=== PATIENT | female | born 1935 | race Caucasian/White ===

== ENCOUNTER → 2018-11-27 | Outpatient (CLI) | payer MEDICARE, OTHER ==
--- NOTE | 2018-11-27 15:55 | PCVCIMAG ---
EXAM: VENOUS DUPLEX LEFT LOWER EXTREMITY INDICATION: Leg pain and swelling. FINDINGS: Left leg: No thrombus in the common femoral, main femoral, or popliteal veins. These veins are compressible with phasic flow. Calf veins are unremarkable where seen. IMPRESSION: No evidence of deep venous thrombosis in the left lower extremity as detailed above. LOC:[id number]
--- NOTE | 2018-11-27 17:13 | PCVCIMAG ---
APPROVED REPORT Study performed: 11/27/2018 13:48:57 EXAM: Comprehensive 2D, Doppler, and color-flow Echocardiogram Patient Location: Echo lab Status: routine BSA: 1.69 HR: 73 bpmBP: 112/62 mmHg Rhythm: Atrial Fibrillation Other Information Study Quality: Technically Difficult Risk Factors: Cardiac Risk Factors: HTN, Hyperlipidemia, , DM Indications Atrial Fibrillation 2D Dimensions IVSd: 9.76 (7-11mm)LVOT Diam: 18.70 (18-24mm) LVDd: 39.30 mm PWd: 10.91 (7-11mm)Ascending Ao: 37.09 (22-36mm) LVDs: 34.78 (25-40mm) Left Atrium: 49.18 (27-40mm) Aortic Root: 32.09 mm LV Single Plane 4CH: 41.67 % Volumes Left Atrial Volume (Systole) Single Plane 4CH: 76.19 mLSingle Plane 2CH: 82.99 mL LA ESV Index: 53.00 mL/m2 Aortic Valve AoV Peak Caden.: 0.92 m/s AO Peak Gr.: 3.38 mmHgLVOT Max P.23 mmHg LVOT Max V: 0.63 m/s YUE Vmax: 1.87 cm2 Mitral Valve E/A Ratio: 1.0 MV E Max Caden.: 0.69 m/s MV A Caden.: 0.66 m/s Pulmonary Valve PV Peak Gr.: 0.59 mmHg Tricuspid Valve TR Peak Caden.: 1.96 m/s TR Peak Gr.: 17.03 mmHg Left Ventricle The left ventricle is normal size. There is normal LV segmental wall motion. There is normal left ventricular wall thickness. Left ventricular systolic function is moderate to severely decreased. LVEF is 35-40%.global This study is not technically sufficient to allow evaluation of the LV diastolic function due to atrial fibrillation. Right Ventricle The right ventricle is normal size. The right ventricular systolic function is normal. Atria Left atrium is severely dilated. Right atrium is severely dilated. Aortic Valve The aortic valve is normal in structure. Trace aortic regurgitation. There is no aortic valvular stenosis. Mitral Valve The mitral valve is normal in structure. Mild mitral regurgitation. No evidence of mitral valve stenosis. Tricuspid Valve The tricuspid valve is normal in structure. Severe tricuspid regurgitation. Pulmonary artery pressure is 27mmHg. Pulmonic Valve The pulmonary valve is normal in structure. There is no pulmonic valvular regurgitation. Great Vessels The aortic root is normal in size. IVC is normal in size and collapses >50% with inspiration. Pericardium There is no pericardial effusion. <Conclusion> The left ventricle is normal size. Left ventricular systolic function is moderate to severely decreased. LVEF is 35-40%.global This study is not technically sufficient to allow evaluation of the LV diastolic function due to atrial fibrillation. The right ventricle is normal size. Left atrium is severely dilated. Right atrium is severely dilated. Trace aortic regurgitation. Mild mitral regurgitation. Severe tricuspid regurgitation. Pulmonary artery pressure is 27mmHg. The aortic root is normal in size. There is no pericardial effusion.
== END | disposition home or self-care (01) ==
LOC: PCVCIMAG 13:08
PROVIDERS: ATTEND Internal Medicine Cardiovascular Disease
DX: I08.1 Rheumatic disorders of both mitral and tricuspid valves (principal); I48.0 Paroxysmal atrial fibrillation; I25.10 Atherosclerotic heart disease of native coronary artery without angina pectoris; E78.00 Pure hypercholesterolemia, unspecified; I10 Essential (primary) hypertension; E11.9 Type 2 diabetes mellitus without complications; R06.02 Shortness of breath; R60.0 Localized edema; M79.89 Other specified soft tissue disorders; Z79.899 Other long term (current) drug therapy
CPT/HCPCS: 93005; 93306; 93971; G0463

== ENCOUNTER → 2018-12-23 | Outpatient (CLI) | payer MEDICARE, OTHER | END | disposition home or self-care (01) | LOC: PCVCCLINIC 14:32 | PROVIDERS: ATTEND Internal Medicine Cardiovascular Disease | DX: I48.91 Unspecified atrial fibrillation (principal); I10 Essential (primary) hypertension; E78.00 Pure hypercholesterolemia, unspecified; E11.9 Type 2 diabetes mellitus without complications; Z79.84 Long term (current) use of oral hypoglycemic drugs; Z88.0 Allergy status to penicillin | CPT/HCPCS: 93005; G0463 ==

== ENCOUNTER → 2019-03-24 | Outpatient (CLI) | payer MEDICARE, OTHER | END | disposition home or self-care (01) | LOC: PCVCCLINIC 13:00 | PROVIDERS: ATTEND Internal Medicine Cardiovascular Disease | DX: I48.91 Unspecified atrial fibrillation (principal); I25.10 Atherosclerotic heart disease of native coronary artery without angina pectoris; E78.00 Pure hypercholesterolemia, unspecified; I10 Essential (primary) hypertension; E11.9 Type 2 diabetes mellitus without complications; I42.9 Cardiomyopathy, unspecified; R53.83 Other fatigue; Z72.89 Other problems related to lifestyle; Z88.0 Allergy status to penicillin; Z88.2 Allergy status to sulfonamides | CPT/HCPCS: 36415; 80061; 93005; G0463 ==

== ENCOUNTER → 2019-04-10 | Outpatient (CLI) | payer MEDICARE, OTHER ==
[~2019-04-10] MED LIST: REGADENOSON 0.4 MG/5 ML DISP.SYRIN. IV ONE
--- NOTE | 2019-04-10 13:55 | PCVCIMAG ---
APPROVED REPORT Study performed: 04/10/2019 08:07:24 EXAM: Limited 2D and color flow Echocardiogram Patient Location: Echo lab Status: routine BSA: 1.60 HR: 70 bpmBP: 124/76 mmHg Rhythm: Atrial Fibrillation Other Information Study Quality: Adequate Risk Factors: Cardiac Risk Factors: Hyperlipidemia, DM Indications Atrial Fibrillation Cardiomyopathy Fatigue 2D Dimensions IVSd: 7.95 (7-11mm) LVDd: 33.86 mm PWd: 8.63 (7-11mm)Ascending Ao: 36.86 (22-36mm) LVDs: 26.63 (25-40mm) Left Atrium: 47.82 (27-40mm) Aortic Root: 31.40 mm LV Single Plane 4CH: 55.83 % LV Single Plane 2CH: 49.27 % Biplane EF: 52.0 % Volumes Left Atrial Volume (Systole) Single Plane 4CH: 63.68 mLSingle Plane 2CH: 60.65 mL LA ESV Index: 40.00 mL/m2 Tricuspid Valve TR Peak Caden.: 2.37 m/sRAP Estimate: 7.00 mmHg TR Peak Gr.: 22.53 mmHg PA Pressure: 30.00 mmHg Left Ventricle The left ventricle is normal size. There is normal left ventricular wall thickness. The left ventricular systolic function is normal. The left ventricular ejection fraction is within the normal range. LVEF is 50-55%. Right Ventricle The right ventricle is normal size. The right ventricular systolic function is normal. Atria Left atrium is mildly dilated. Right atrium is dilated. Aortic Valve The aortic valve is normal in structure. Mitral Valve The mitral valve is normal in structure. Tricuspid Valve The tricuspid valve is normal in structure. Moderate tricuspid regurgitation. Pulmonary artery pressure is 30 mmHg. Pulmonic Valve The pulmonary valve is normal in structure. Great Vessels The aortic root is normal in size. The ascending aorta is normal in size. IVC is normal in size and collapses >50% with inspiration. Pericardium There is no pericardial effusion. <Conclusion> The left ventricle is normal size. LVEF is 50-55%. The right ventricle is normal size. Left atrium is mildly dilated. Right atrium is dilated. The aortic valve is normal in structure. The mitral valve is normal in structure. The aortic root is normal in size. There is no pericardial effusion.
--- NOTE | 2019-04-21 17:09 | PCVCIMAG ---
APPROVED REPORT Imaging Protocol: Rest Tc-99m/Stress Tc-99m 1 day Study performed: 04/10/2019 09:12:15 Indication: Atrial Fibrillation, CAD, Fatigue, Cardiomyopathy Patient Location: Out-Patient Stress Nurse: Rosita Hagen RN [place] Tech:Fabiola Masonhbun [facility] Ht: 5 ft 3 in Wt: 129 lbs BSA: 1.60 m2 HR: 91 bpm BP: 147/63 mmHg BMI: 22.8 Rhythm: Atrial Fibrillation Medical History Medical History: HTN, Hyperlipidemia, Diabetic � Noninsulin, Former Smoker Medications: Cardizem, Lisinopril-HCTZ, Xarelto Allergies: Sulfa, PCN Cardiac Risk Factors: Age Pretest Chest Pain Characteristics: No chest pain Exercise History: Sedentary Physical Disabilities: Lower Extremity Neuropathy Resting Data Rest SPECT myocardial perfusion imaging was performed in supine position 45 minutes following the intravenous injection of 10.3 mCi of Tc-99m Sestamibi. Time of rest injection: 0840 Date: 04/10/2019 Administration Route: IV Administration Site: Right AC Pharmacologic Stress Pharmacologic stress test was performed by injecting Regadenoson 0.4 mg IV push over 10-15 seconds immediately followed by the intravenous injection of 31.3 mCi of Tc-99m Sestamibi. Time of stress injection: 1000 Date: 04/10/2019 Administration Route: IV Administration Site: Right AC Gated Stress SPECT was performed 45 minutes after stress injection. The images were gated to evaluate regional wall motion and calculate left ventricular ejection fraction. Stress Test Details Stress Test: Pharmacologic stress testing performed using 0.4 mg of regadenoson per 5 mL given IV over 10 seconds. Reason for pharmacologic stress test: physical limitation, neuropathy. HRMax Heart Rate (APMHR): 135 bpm Resting HR: 91 bpmTarget HR (85% APMHR): 114 bpm Max HR Achieved: 77 bpm % of APMHR: 57 Recovery HR: 78 bpm BP Resting BP: 147/63 mmHg Max BP: 99/58 mmHg Recovery BP: 104/53 mmHg ECG Resting ECG: Atrial Fibrillation Stress ECG: Atrial Fibrillation Arrhythmia: PVC's Recovery ECG: Atrial Fibrillation Clinical Reason for Termination: Completed protocol Stress Symptoms: Abdominal discomfort, Lightheaded Exercise duration: min 55 sec Symptoms resolved with caffeine. Stress ECG Conclusion ECG: Non-ischemic Study Quality Study: Good Study Data Post stress, the left ventricular ejection was 75%.. SSS: 0 SRS: 0 SDS: 0 TID = 1.07. Perfusion No evidence of stress induced ischemia or prior myocardial infarction. Wall Motion Normal left ventricular size and function with no regional wall motion abnormalities. Nuclear Conclusion No evidence of stress induced ischemia or prior myocardial infarction. Normal left ventricular size and function with no regional wall motion abnormalities. Post stress, the left ventricular ejection was 75%. No prior study available for comparison. Interpreted by: Umer Ramirez MD Electronically Approved: 04/10/2019 17:36:25 <Conclusion> ECG: Non-ischemic
== END | disposition home or self-care (01) ==
LOC: PCVCIMAG 07:58
PROVIDERS: ATTEND Internal Medicine Cardiovascular Disease
DX: I48.91 Unspecified atrial fibrillation (principal); I42.9 Cardiomyopathy, unspecified; E11.9 Type 2 diabetes mellitus without complications; I25.10 Atherosclerotic heart disease of native coronary artery without angina pectoris
CPT/HCPCS: 78452; 93017; 93308; A9500; J2785